=== PATIENT | male | born 1960 | race Caucasian/White ===

== ENCOUNTER 2016-11-25 16:37 | Inpatient (IN) | payer OTHER ==
[2016-11-25] MEDS ORDERED: SODIUM CHLORIDE 0.9% 500 ML IV ONE (17:50)
[2016-11-25] MEDS ORDERED: methylPREDNISolone SOD SUCCI 125 MG/2 ML VIAL IV STA (17:50)
[2016-11-25] MEDS ORDERED: IPRATROPIUM-ALBUTEROL 3 ML NEB INHALATION STA (17:50)
--- NOTE | 2016-11-25 18:46 | ED ---
URI HPI - General Chief Complaint: Upper Respiratory Infection Stated Complaint: congestion Time Seen by Provider: 11/25/16 17:41 Source: patient, RN notes reviewed Mode of arrival: ambulatory Limitations: no limitations - History of Present Illness Initial Comments: 56-year-old male present emergency Department chief complaint cough chest congestion. Patient states she's been sick for last 5 days. Patient states he has a productive cough. Patient states she's had increased shortness breath, wheezing. Patient was seen at urgent care and was given Augmentin, steroids, also and albuterol inhaler. Patient states that symptoms are getting worse. Patient noticed that time. Patient states she's had on and off fevers over the last 5 days. Patient states he has been taken Tylenol for his headaches almost every 6 hours. Patient denies any palpitations sharp chest pain but states he feels some tightness in his chest region. Patient denies any nausea vomiting. Patient has no sick contacts - Related Data Home Medications Medication Instructions Recorded Confirmed Atorvastatin [Lipitor] 80 mg PO HS 08/03/16 11/25/16 Chlorthalidone [Hygroten] 50 mg PO DAILY 08/03/16 11/25/16 Cholecalciferol [Vitamin D3] 5,000 unit PO HS 08/03/16 11/25/16 DULoxetine HCL [Cymbalta] 60 mg PO DAILY 08/03/16 11/25/16 Multivitamin [Men's Multi-Vitamin] 1 tab PO HS 08/03/16 11/25/16 amLODIPine [Norvasc] 10 mg PO DAILY 08/03/16 11/25/16 cloNIDine HCL [Catapres] 0.3 mg PO HS 08/03/16 11/25/16 Albuterol Inhaler [Ventolin Hfa 1 - 2 puff INHALATION RT-Q6H PRN 11/25/16 Inhaler] Amoxic-Pot Clav 875-125Mg 1 tab PO Q12HR 11/25/16 11/25/16 [Augmentin 875-125] L.acidoph,Paracasei, B.lactis 1 cap PO HS 11/25/16 11/25/16 [Probiotic] Promethaz-Cod 6.25-10 mg/5 ml 5 ml PO Q6H PRN 11/25/16 11/25/16 [Phenergan with Codeine] predniSONE See Taper PO DAILY 11/25/16 11/25/16 Allergies Allergy/AdvReac Type Severity Reaction Status Date / Time No Known Allergies Allergy Verified 11/25/16 17:55 Review of Systems ROS Statement: Those systems with pertinent positive or pertinent negative responses have been documented in the HPI. ROS Other: All systems not noted in ROS Statement are negative. Past Medical History Past Medical History: Hyperlipidemia, Hypertension, Musculoskeletal Disorder, Osteoarthritis (OA), Sleep Apnea/CPAP/BIPAP, Thyroid Disorder Additional Past Medical History / Comment(s): uses CPAP, hx. colon polyps, back & disc problems History of Any Multi-Drug Resistant Organisms: None Reported Past Surgical History: Adenoidectomy, Orthopedic Surgery, Tonsillectomy Additional Past Surgical History / Comment(s): left knee arthroscopy, pain procedures, surg. for sleep apnea Past Anesthesia/Blood Transfusion Reactions: Postoperative Nausea & Vomiting ( PONV) Additional Past Anesthesia/Blood Transfusion Reaction / Comment(s): nausea Past Psychological History: No Psychological Hx Reported Smoking Status: Never smoker Past Alcohol Use History: None Reported Past Drug Use History: None Reported - Past Family History Mother Family Medical History: Cancer Additional Family Medical History / Comment(s): colon General Exam Limitations: no limitations General appearance: alert, in no apparent distress Head exam: Present: atraumatic, normocephalic, normal inspection Eye exam: Present: normal appearance, PERRL, EOMI. Absent: scleral icterus, conjunctival injection, periorbital swelling ENT exam: Present: mucous membranes moist, TM's normal bilaterally, normal external ear exam. Absent: normal exam, normal oropharynx (Erythema) Neck exam: Present: normal inspection, full ROM. Absent: tenderness, meningismus, lymphadenopathy Respiratory exam: Present: wheezes, rhonchi. Absent: normal lung sounds bilaterally, respiratory distress, rales, stridor Cardiovascular Exam: Present: regular rate, normal rhythm, normal heart sounds. Absent: systolic murmur, diastolic murmur, rubs, gallop, clicks Back exam: Absent: CVA tenderness (R), CVA tenderness (L) Neurological exam: Present: alert, oriented X3, CN II-XII intact Skin exam: Present: warm, dry, intact, normal color. Absent: rash Course Vital Signs 11/25/16 11/25/16 11/25/16 16:59 19:02 19:12 Temperature 98.5 F Pulse Rate 92 97 108 H Respiratory 18 Rate Blood Pressure 160/99 O2 Sat by Pulse 97 Oximetry Medical Decision Making - Medical Decision Making 56-year-old male presented for cough and congestion. Patient has influenza A but has continued shortness breath, wheezing respirations chest. Patient was admitted at this time for steroids, DuoNeb treatment. - Lab Data Result diagrams: 11/25/16 18:31 11/25/16 18:31 Lab Results 11/25/16 11/25/16 11/25/16 Range/Units 18:31 18:31 18:31 WBC 9.7 (3.8-10.6) k/uL RBC 6.07 H (4.30-5.90) m/uL Hgb 17.8 H (13.0-17.5) gm/dL Hct 53.1 H (39.0-53.0) % MCV 87.4 (80.0-100.0) fL MCH 29.4 (25.0-35.0) pg MCHC 33.6 (31.0-37.0) g/dL RDW 13.2 (11.5-15.5) % Plt Count 368 (150-450) k/uL Neutrophils % 67 % Lymphocytes % 21 % Monocytes % 9 % Eosinophils % 0 % Basophils % 0 % Neutrophils # 6.5 (1.3-7.7) k/uL Lymphocytes # 2.0 (1.0-4.8) k/uL Monocytes # 0.9 (0-1.0) k/uL Eosinophils # 0.0 (0-0.7) k/uL Basophils # 0.0 (0-0.2) k/uL Sodium 140 (137-145) mmol/L Potassium 3.2 L (3.5-5.1) mmol/L Chloride 94 L (98-107) mmol/L Carbon Dioxide 29 (22-30) mmol/L Anion Gap 17 mmol/L BUN 18 (9-20) mg/dL Creatinine 0.93 (0.66-1.25) mg/dL Est GFR (MDRD) Af Amer >60 (>60 ml/min/1.73 sqM) Est GFR (MDRD) Non-Af >60 (>60 ml/min/1.73 sqM) Glucose 140 H (74-99) mg/dL Calcium 10.1 (8.4-10.2) mg/dL Total Bilirubin 0.7 (0.2-1.3) mg/dL AST 56 (17-59) U/L ALT 84 H (21-72) U/L Alkaline Phosphatase 85 (38-126) U/L Troponin I (0.000-0.034) ng/mL Total Protein 8.8 H (6.3-8.2) g/dL Albumin 5.1 H (3.5-5.0) g/dL Influenza Type A RNA Detected H (Not Detectd) Influenza Type B (PCR) Not Detected (Not Detectd) 11/25/16 Range/Units 18:31 WBC (3.8-10.6) k/uL RBC (4.30-5.90) m/uL Hgb (13.0-17.5) gm/dL Hct (39.0-53.0) % MCV (80.0-100.0) fL MCH (25.0-35.0) pg MCHC (31.0-37.0) g/dL RDW (11.5-15.5) % Plt Count (150-450) k/uL Neutrophils % % Lymphocytes % % Monocytes % % Eosinophils % % Basophils % % Neutrophils # (1.3-7.7) k/uL Lymphocytes # (1.0-4.8) k/uL Monocytes # (0-1.0) k/uL Eosinophils # (0-0.7) k/uL Basophils # (0-0.2) k/uL Sodium (137-145) mmol/L Potassium (3.5-5.1) mmol/L Chloride (98-107) mmol/L Carbon Dioxide (22-30) mmol/L Anion Gap mmol/L BUN (9-20) mg/dL Creatinine (0.66-1.25) mg/dL Est GFR (MDRD) Af Amer (>60 ml/min/1.73 sqM) Est GFR (MDRD) Non-Af (>60 ml/min/1.73 sqM) Glucose (74-99) mg/dL Calcium (8.4-10.2) mg/dL Total Bilirubin (0.2-1.3) mg/dL AST (17-59) U/L ALT (21-72) U/L Alkaline Phosphatase (38-126) U/L Troponin I <0.012 (0.000-0.034) ng/mL Total Protein (6.3-8.2) g/dL Albumin (3.5-5.0) g/dL Influenza Type A RNA (Not Detectd) Influenza Type B (PCR) (Not Detectd) Disposition Clinical Impression: Influenza, Dyspnea, Bronchospasm, acute Disposition: ADMITTED IP TO THIS HOSP Condition: Fair
[2016-11-25 18:49] LABS: Basophils % (A) 0 %; CH 30.3; CHCM 34.9; Eosinophils % (A) 0 %; HCT 53.1 % (39.0-53.0); HDW 2.87; HGB 17.8 gm/dL (13.0-17.5); Luc # (Auto) 0.22; Luc % (Auto) 2; Lymphocytes % (A) 21 %; MCH 29.4 pg (25.0-35.0); MCHC 33.6 g/dL (31.0-37.0); MCV 87.4 fL (80.0-100.0); Mean Platelet Volume 6.4; Monocytes # (A) 0.9 k/uL (0-1.0); Monocytes % (A) 9 %; Neutrophils # (A) 6.5 k/uL (1.3-7.7); Neutrophils % (A) 67 %; RBC 6.07 m/uL (4.30-5.90); RDW 13.2 % (11.5-15.5); WBC 9.7 k/uL (3.8-10.6); WBC (Perox) 9.79
[2016-11-25 18:58] LABS: ALT 84 U/L (21-72); AST 56 U/L (17-59); Alkaline Phosphatase 85 U/L (38-126); Anion Gap 17 mmol/L; Blood Urea Nitrogen 18 mg/dL (9-20); Calcium 10.1 mg/dL (8.4-10.2); Carbon Dioxide 29 mmol/L (22-30); Chloride 94 mmol/L (98-107); Glucose 140 mg/dL (74-99); Non-African American GFR(MDRD) >60 (>60 ml/min/1.73 sqM); Potassium 3.2 mmol/L (3.5-5.1); Sodium 140 mmol/L (137-145); Total Bilirubin 0.7 mg/dL (0.2-1.3); Total Protein 8.8 g/dL (6.3-8.2)
--- NOTE | 2016-11-25 19:42 | XR ---
EXAMINATION TYPE: XR chest 2V DATE OF EXAM: 11/25/2016 7:36 PM COMPARISON: NONE HISTORY: Cough and fever TECHNIQUE: Frontal and lateral views of the chest are obtained. FINDINGS: Heart and mediastinum are normal. Lungs are clear. Diaphragm is normal. Bony thorax and so ft tissues appear normal. IMPRESSION: Normal chest.
[2016-11-25] MEDS ORDERED: ONDANSETRON 4 MG/2 ML VIAL IVP PRN (19:56)
[2016-11-25] MEDS ORDERED: NALOXONE 0.4 MG/ML 1 ML VIAL IV PRN (19:56)
[2016-11-25] MEDS ORDERED: PROMETHAZ-COD 6.25-10 MG/5 ML 5 ML CUP PO PRN (19:57)
[2016-11-25] MEDS ORDERED: OSELTAMIVIR 75 MG CAP PO STA (20:32)
[2016-11-25] MEDS: IPRATROPIUM-ALBUTEROL 3 ML NEB INHALATION SCH (21:04)
[2016-11-26] MEDS: IPRATROPIUM-ALBUTEROL 3 ML NEB INHALATION SCH ×7 (00:59→23:38)
[2016-11-26] MEDS: methylPREDNISolone SOD SUCCI 125 MG/2 ML VIAL IV SCH ×4 (01:11→17:27)
[2016-11-26] MEDS: cloNIDine HCL 0.1 MG TAB PO SCH ×2 (01:12→20:34)
[2016-11-26] MEDS: ATORVASTATIN 80 MG TAB PO SCH ×2 (01:12→20:34)
[2016-11-26] MEDS: MULTIVITAMINS, THERA 1 EACH TAB PO SCH ×2 (01:12→20:35)
[2016-11-26] MEDS: LACTOBACILLUS ACIDOPH & BULGAR 1 EACH PACKET PO SCH ×3 (01:12→20:35)
[2016-11-26 07:54] LABS: Glucose,Whole Blood 201 mg/dL (75-99)
[2016-11-26] MEDS: INSULIN LISPRO (humaLOG) 300 UNIT/3 ML VIAL SQ SCH ×4 (07:54→20:34)
[2016-11-26] MEDS: CHLORTHALIDONE 25 MG TAB PO SCH (07:57)
[2016-11-26] MEDS: OSELTAMIVIR 75 MG CAP PO SCH ×2 (07:58→20:34)
[2016-11-26] MEDS: ACETAMINOPHEN TAB 325 MG TAB PO PRN ×2 (08:25→20:40)
[2016-11-26] MEDS: DULoxetine HCL 60 MG CAPSULE.DR PO SCH (08:25)
[2016-11-26] MEDS: amLODIPine 10 MG TAB PO SCH (08:25)
[2016-11-26] MEDS: IBUPROFEN 400 MG TAB PO PRN ×2 (09:54→17:31)
[2016-11-26 11:44] LABS: Glucose,Whole Blood 194 mg/dL (75-99)
[2016-11-26 13:04] LABS: Anion Gap 19 mmol/L; Blood Urea Nitrogen 19 mg/dL (9-20); Calcium 10.1 mg/dL (8.4-10.2); Carbon Dioxide 24 mmol/L (22-30); Chloride 97 mmol/L (98-107); Glucose 192 mg/dL (74-99); Non-African American GFR(MDRD) >60 (>60 ml/min/1.73 sqM); Sodium 140 mmol/L (137-145)
[2016-11-26 13:07] LABS: Potassium 2.9 mmol/L (3.5-5.1)
[2016-11-26] MEDS ORDERED: Potassium Replacement Protocol 1 EACH MISC MISCELLANE PRN (13:10)
[2016-11-26] MEDS ORDERED: VANCOMYCIN 1,750 MG in SODIUM CHLORIDE 0.9% 250 ML IVPB STA (13:33)
[2016-11-26] MEDS ORDERED: IV VANCOMYCIN PER PHARMACY 1 EACH MISC MISCELLANE PRN (13:34)
[2016-11-26] MEDS: POTASSIUM CHLORIDE ER 20 MEQ TAB.ER PO SCH ×5 (13:51→22:23)
[2016-11-26] MEDS: 0.9% NACL WITH KCL 40 MEQ/L 1,000 ML IV SCH (14:49)
[2016-11-26] MEDS ORDERED: ALPRAZolam 0.25 MG TAB PO PRN (14:58)
[2016-11-26] MEDS ORDERED: HYDROmorphone 1 MG/ML 1 ML SYRINGE IVP PRN (14:58)
[2016-11-26] MEDS ORDERED: LEVOFLOXACIN 500MG-D5W PMX 500 MG in DEXTROSE/WATER 1 100ML.BAG IVPB SCH (16:00)
[2016-11-26 16:09] LABS: Basophils # (A) 0.1 k/uL (0-0.2); Basophils % (A) 1 %; CH 30.6; CHCM 35.3; Eosinophils # (A) 0.1 k/uL (0-0.7); Eosinophils % (A) 0 %; HCT 49.2 % (39.0-53.0); HDW 2.84; HGB 16.8 gm/dL (13.0-17.5); Luc # (Auto) 0.17; Luc % (Auto) 1; Lymphocytes # (A) 1.8 k/uL (1.0-4.8); Lymphocytes % (A) 14 %; MCH 29.8 pg (25.0-35.0); MCHC 34.2 g/dL (31.0-37.0); MCV 87.2 fL (80.0-100.0); Mean Platelet Volume 7.1; Monocytes # (A) 0.5 k/uL (0-1.0); Monocytes % (A) 4 %; Neutrophils # (A) 10.2 k/uL (1.3-7.7); Neutrophils % (A) 80 %; RBC 5.65 m/uL (4.30-5.90); RDW 13.1 % (11.5-15.5); WBC 12.8 k/uL (3.8-10.6)
[2016-11-26] MEDS: HEPARIN SODIUM,PORCINE 5,000 UNIT/ML 1 ML VIAL SQ SCH (16:12)
[2016-11-26 17:16] LABS: Glucose,Whole Blood 179 mg/dL (75-99)
--- NOTE | 2016-11-26 18:35 | HP ---
DATE OF ADMISSION: 11/25/2016 CHIEF COMPLAINTS: Cough sputum, weakness as well as influenza. HISTORY OF PRESENT ILLNESS: This 56-year-old gentleman with a past medical history of multiple medical problems, including hypertension, hyperlipidemia, history of DJD, history of sleep apnea, history of CPAP, history of colon polyp, being followed by Dr. Tovar in the outpatient setting, was not feeling well over the last 2 to 3 days. The patient had increasing shortness of breath and cough. The patient also felt tired and weak and had fever. Patient came to [facility] and was admitted for further evaluation and treatment. Chest x-ray reported no evidence of pneumonia, but influenza A was positive. Patient also had significant electrolyte abnormalities, including hypokalemia. There is no history of any rigor or chills, no history of headache, loss of consciousness at this time. As mentioned earlier, patient is feeling extremely tired and weak at this time. PAST MEDICAL HISTORY: 1. History of hypertension. 2. Hyperlipidemia. 3. History of DJD. 4. History of sleep apnea. 5. Hypothyroidism. 6. CPAP. 7. Adenoidectomy. 8. Orthopedic surgery. HOME MEDICATIONS: 1. Prednisone daily. 2. Catapres 0.2 at bedtime. 3. Norvasc 10 mg daily. 4. Phenergan 5 mL p.o. q.6 p.r.n. 5. Multivitamins 1 p.o. daily. 6. Lactobacillus acidophilus 1 capsule at bedtime. 7. Cymbalta 60 mg daily. 8. Vitamin D3 5000 subcutaneously at bedtime. 9. Hygroton 50 mg p.o. daily. 10. Lipitor 80 mg at bedtime. 11. Augmentin 875 mg 1 tablet p.o. b.i.d. 12. Ventolin HFA 1 to 2 inhalations q.6 p.r.n. ALLERGIES: NONE. FAMILY HISTORY: History of cancer in the family. SOCIAL HISTORY: No history of smoking. Occasional alcohol intake. REVIEW OF SYSTEMS: ENT: No diminished hearing. No diminished vision. CARDIOVASCULAR: No angina or palpitations. RESPIRATORY: As mentioned earlier. GI: No nausea. : No dysuria. NERVOUS SYSTEM: No numbness. Weakness present. ALLERGY/IMMUNOLOGY: No asthma, hayfever MUSCULOSKELETAL: As mentioned earlier. HEMATOLOGY/ONCOLOGY: No history of anemia. ENDOCRINE: No history of diabetes, hypothyroidism. CONSTITUTIONAL: As mentioned earlier. DERMATOLOGY: Negative. RHEUMATOLOGY: Negative. PSYCHIATRY: As mentioned earlier. PHYSICAL EXAMINATION: Patient is alert and oriented x3. Pulse is 77, blood pressure 147/99, respiration 20, temperature 96.4, pulse ox 99% on room air. HEENT: Conjunctivae normal. Oral mucosa moist. NECK: No jugular venous distention. No carotid bruit. No lymph node enlargement. CARDIOVASCULAR SYSTEM: S1, S2 muffled. No S3. No S4. RESPIRATORY SYSTEM: Breath sounds diminished at the bases. Bilateral scattered rhonchi and expiratory wheezing and crackles. ABDOMEN: Soft, obese, nontender. No mass palpable. LEGS: No edema. No swelling. NERVOUS SYSTEM: Higher functions as mentioned earlier. Moves all 4 limbs. No focal motor or sensory deficit. LYMPHATICS: No lymph node palpable in neck, axillae or groin. SKIN: No ulcer, rash, bleeding. LABS: WBC 9.7, hemoglobin 17.8, hematocrit 53.1. Potassium 3.2; 2.9 on repetition. Glucose 201, 194. Influenza A is positive. ASSESSMENT: 1. Acute influenza A with severe systemic reaction. 2. Severe hypokalemia. 3. Increased random blood sugar. 4. Increased hemoglobin with possible dehydration, present on admission. 5. Obesity with body mass index of 34.3. 6. Hypertension. 7. Hyperlipidemia. 8. History of degenerative joint disease. 9. History of sleep apnea. 10. History of hypothyroidism. 11. History of CPAP. 12. History of colonic polyps. 13. History of degenerative joint disease. 14. FULL CODE. RECOMMENDATIONS AND DISCUSSION: In this 56-year-old gentleman who presented with multiple complex medical issues, we will monitor the patient closely, continue the current medications, continue symptomatic treatment. I would recommend initiating Tamiflu. Would also recommend broad-spectrum IV antibiotics. Also consult Infectious Disease. Steroids have been initiated. Will continue to monitor. Accu-Cheks before meals and at bedtime. Guarded prognosis because of multiple complex medical issues. Further recommendations to follow. A copy of this dictation is being forwarded to Dr. Tovar, who is the primary physician.
--- NOTE | 2016-11-26 20:09 | CONS ---
DATE OF CONSULTATION: 11/26/2016 REASON FOR CONSULTATION: 1. Acute influenza A. 2. Positive blood culture. HISTORY OF PRESENT ILLNESS: The patient is a 56-year-old male presenting to the ER with chief complaints of not feeling well cough with cough and congestion that have been going on for about a week prior to presentation to hospital. His symptoms started last weekend; he had some sore throat and he had dry, hacking cough. He also had a low-grade fever. Patient was evaluated at the Urgent Care, where the patient was given steroids and Augmentin. However, the patient's symptoms did not improve. He continued to have a dry, hacking cough. At times he did bring up some greenish sputum but no hemoptysis. He has some pleuritic chest pain, especially when he takes a deep breath or coughs. The patient did have a low-grade fever. With these symptoms, he was evaluated by the ER physician. The patient did have a chest x-ray last evening that was reported to be normal chest. The patient did have a normal white count, though his influenza A RNA came back positive. The patient did have blood cultures obtained and he was treated with Tamiflu. Now the blood culture is coming back positive with Gram-positive cocci in clusters. Hence I was asked to see the patient for further recommendations regarding antibiotic therapy. REVIEW OF SYSTEMS: CONSTITUTIONAL: Positive for weakness. EYES: No complaint. ENT: As per HPI. RESPIRATORY: As per HPI. CARDIOVASCULAR: No complaint. GENITOURINARY: No complaint. GASTROINTESTINAL: No complaint. MUSCULOSKELETAL: No complaint. INTEGUMENTARY: No complaint. PSYCHOLOGIC: No complaint. ENDOCRINE: No complaint. NEUROLOGIC: No complaint. Past medical history is significant for: 1. Hypertension. 2. Hyperlipidemia. 3. Osteoarthritis. 4. Sleep apnea. 5. Hypothyroidism. 6. Chronic back pain. PAST SURGICAL HISTORY: 1. Tonsillectomy. 2. Adenoidectomy. 3. Left knee arthroscopy. SOCIAL HISTORY: No history of smoking, drinking or drug use. FAMILY HISTORY: Father with history of colon cancer. ALLERGIES: NO KNOWN DRUG ALLERGIES. Current medications include: 1. Dilaudid. 2. Motrin. 3. Humalog. 4. Lactobacillus. 5. Levofloxacin. 6. Solu-Medrol. 7. Marcaine. 8. Tamiflu. 9. Protonix. 10. Restoril. 11. Vancomycin. On examination, blood pressure is 141/86 with a pulse of 84, temperature of 97.2. He is 93% on room air. General description is a middle-aged male lying in bed in no distress. No tachypnea or accessory muscle of respiration use. HEENT examination showed no pallor or scleral icterus. Oral mucosa is moist. Slight pharyngeal erythema. NECK: Trachea is central. No thyromegaly. LUNGS: Unlabored breathing. Clear to auscultation anteriorly. No wheeze or crackle. HEART: S1, S2. Regular rate and rhythm. ABDOMEN: Soft. No tenderness. EXTREMITIES: No edema of feet. SKIN EXAMINATION: No rash or mass palpable. NEUROLOGICAL: Patient is awake, alert, oriented x3. Mood and affect normal. LABS: Hemoglobin is 13.8, white count 9.7. BUN of 19, creatinine 1.0. Potassium is 2.9, is being replaced. Liver enzymes ALT is slightly elevated at 84. Influenza A serology was positive. Chest x-ray reported to be negative. DIAGNOSTIC IMPRESSION AND PLAN: 1. Patient with positive blood culture with Gram-positive cocci in clusters. The patient presented to hospital with not feeling well; did have dry hacking cough and a sore throat. Symptoms had been going on for about a week, failing outpatient steroids and oral antibiotic therapy in a patient whose influenza A serology is coming back positive, likely influenza A with differential for positive blood cultures possible contamination, as the chest x-ray is reported to be negative for any pneumonia and his lungs were clear to auscultation, and no other clinical focus of infection. 2. Patient with acute influenza A being responsible for most of his symptomatology, failing outpatient antibiotic as well as steroid therapy. PLAN: 1. Will obtain blood culture x1 before starting on the vancomycin to make sure we are not dealing with contamination. 2. If the organism is finalized as a coagulase-negative staph or Staphylococcus epi, will be disregarded and no further workup is needed. 3. If the organism is finalized as Staphylococcus aureus, we will need to do further workup and repeat a chest x-ray to make sure there is no evidence of any post-influenza pneumonia that needs to be treated aggressively. 4. Patient will be continued on vancomycin while workup is completed in addition to the Tamiflu. 5. Will follow up on his clinical condition and cultures to further adjust the medication if needed. Thank you for this consultation. Will follow this patient along with you. DIRK
[2016-11-26 20:16] LABS: Appearance,Urine Clear (Clear); Bilirubin,Urine Negative (Negative); Glucose,Urine (UA) Negative (Negative); Ketones,Urine Negative (Negative); Leukocyte Esterase,Urine Negative (Negative); Nitrite,Urine Negative (Negative); PH, Urine 6.5 (5.0-8.0); Protein,Urine Negative (Negative); Specific Gravity,Urine 1.011 (1.001-1.035); UA Billing (MACRO vs. MICRO) CHEM; Urobilinogen,Urine <2.0 mg/dL (<2.0)
[2016-11-26] MEDS: TEMAZEPAM 15 MG CAP PO PRN (20:40)
[2016-11-26 20:57] LABS: Glucose,Whole Blood 187 mg/dL (75-99)
[2016-11-27] MEDS: POTASSIUM CHLORIDE ER 20 MEQ TAB.ER PO SCH
[2016-11-27] MEDS: IPRATROPIUM-ALBUTEROL 3 ML NEB INHALATION SCH ×6 (05:54→23:02)
[2016-11-27] MEDS: methylPREDNISolone SOD SUCCI 125 MG/2 ML VIAL IV SCH ×3 (06:32→12:45)
[2016-11-27] MEDS: HYDROcodone/APAP 5-325MG 1 EACH TAB PO PRN ×3 (06:33→20:06)
[2016-11-27 07:54] LABS: Glucose,Whole Blood 156 mg/dL (75-99)
[2016-11-27 08:02] LABS: Basophils % (A) 0 %; CH 30.1; CHCM 34.4; Eosinophils % (A) 0 %; HCT 45.4 % (39.0-53.0); HDW 2.83; HGB 14.8 gm/dL (13.0-17.5); Luc # (Auto) 0.25; Luc % (Auto) 1; Lymphocytes # (A) 2.5 k/uL (1.0-4.8); Lymphocytes % (A) 15 %; MCH 28.8 pg (25.0-35.0); MCHC 32.6 g/dL (31.0-37.0); MCV 88.2 fL (80.0-100.0); Mean Platelet Volume 6.6; Monocytes # (A) 0.8 k/uL (0-1.0); Monocytes % (A) 4 %; Neutrophils # (A) 13.8 k/uL (1.3-7.7); Neutrophils % (A) 80 %; RBC 5.15 m/uL (4.30-5.90); RDW 13.5 % (11.5-15.5); WBC 17.3 k/uL (3.8-10.6); WBC (Perox) 17.92
[2016-11-27] MEDS: PANTOPRAZOLE 40 MG TABLET PO SCH (08:12)
[2016-11-27] MEDS: amLODIPine 10 MG TAB PO SCH (08:12)
[2016-11-27] MEDS: HEPARIN SODIUM,PORCINE 5,000 UNIT/ML 1 ML VIAL SQ SCH ×2 (08:13→20:08)
[2016-11-27] MEDS: DULoxetine HCL 60 MG CAPSULE.DR PO SCH (08:13)
[2016-11-27] MEDS: OSELTAMIVIR 75 MG CAP PO SCH ×2 (08:13→20:09)
[2016-11-27] MEDS: CHLORTHALIDONE 25 MG TAB PO SCH (08:13)
[2016-11-27] MEDS: INSULIN LISPRO (humaLOG) 300 UNIT/3 ML VIAL SQ SCH ×4 (08:13→22:14)
[2016-11-27 08:14] LABS: Anion Gap 14 mmol/L; Blood Urea Nitrogen 22 mg/dL (9-20); Calcium 9.4 mg/dL (8.4-10.2); Carbon Dioxide 28 mmol/L (22-30); Chloride 99 mmol/L (98-107); Glucose 151 mg/dL (74-99); Non-African American GFR(MDRD) >60 (>60 ml/min/1.73 sqM); Potassium 3.6 mmol/L (3.5-5.1); Sodium 141 mmol/L (137-145)
[2016-11-27] MEDS: 0.9% NACL WITH KCL 40 MEQ/L 1,000 ML IV SCH ×3 (08:21→23:15)
--- NOTE | 2016-11-27 09:18 | XR ---
EXAMINATION TYPE: XR chest 1V portable DATE OF EXAM: 11/27/2016 9:05 AM COMPARISON: 11/25/2016 HISTORY: Cough and pain TECHNIQUE: Single frontal view of the chest is obtained. FINDINGS: There is no focal air space opacity, pleural effusion, or pneumothorax seen. The cardiac silhouette size is within normal limits. The osseous structures are intact. IMPRESSION: No acute process.
[2016-11-27] MEDS ORDERED: POTASSIUM CHLORIDE ER 20 MEQ TAB.ER PO SCH (10:00)
[2016-11-27 12:44] LABS: Glucose,Whole Blood 163 mg/dL (75-99)
[2016-11-27] MEDS: VANCOMYCIN 1,750 MG in SODIUM CHLORIDE 0.9% 250 ML IVPB SCH ×4 (12:45→23:15)
--- NOTE | 2016-11-27 16:45 | PN ---
DATE OF SERVICE: 11/27/2016 This 56-year-old gentleman who was admitted with acute influenza A with possible sepsis, present on admission is being closely monitored. The initial cultures are showing coagulase-negative Staph. Dr. Shaikh is following the patient closely. The patient is on broad-spectrum IV antibiotics. The patient complains of shortness of breath and incessant cough also. No chest pain or palpitations. Past medical history reviewed. REVIEW OF SYSTEMS: CARDIOVASCULAR: No angina or palpitations. RESPIRATORY: As mentioned earlier. GASTROINTESTINAL: As mentioned earlier. GENITOURINARY: No dysuria or hematuria. CENTRAL NERVOUS SYSTEM: No numbness. Generalized weakness present. Current medications are reviewed and include: 1. Tylenol 650 q.6 p.r.n. 2. Drummonds 5 mg. 3. DuoNeb q.i.d. and p.r.n. 4. Xanax 0.25 t.i.d. 5. Norvasc 10 mg daily. 6. Lipitor 80 mg q.h.s. 9. Cymbalta 60 milligrams p.o. daily. 10. Heparin 5000 subcu b.i.d. 11. Dilaudid 0.5 mg q.6 p.r.n. 12. Motrin 600 mg q.6h p.r.n. 13. Humalog. 14. Lactinex. 15. Multivitamins. 16. Tamiflu 70 milligrams p.o. b.i.d. 17. Temazepam. 18. Vancomycin. PHYSICAL EXAMINATION: The patient is alert and oriented times three. Pulse 76, blood pressure is 141/82, respirations 16, temperature 97.4 and pulse ox 97% on room air. HEENT: Conjunctivae normal. Oral mucosa moist. NECK: No jugular venous distention. No carotid bruit. No lymph node enlargement. CARDIOVASCULAR: S1, S2 muffled. No S3, no S4. RESPIRATORY: Breath sounds diminished in the bases. A few scattered rhonchi and crackles. ABDOMEN: Soft, nontender. LEGS: No edema. No swelling. CENTRAL NERVOUS SYSTEM: Higher functions as mentioned earlier. Moves all four limbs. No focal deficits. LYMPHATICS: No lymph nodes palpable in the neck, axillae or groin. SKIN: No ulcer, rash or bleeding. LABS: WBC 70.3 and glucose noted. EKG noted. ASSESSMENT: 1. Acute influenza A with possible sepsis, present on admission. 2. Acute purulent tracheobronchitis. 3. Severe hypokalemia. 4. Increased elevated QT interval. 5. Increased random blood sugar. 6. Increased hemoglobin with possible dehydration, present on admission. 7. Obesity body mass index of 34.6. 8. Hypertension. 9. Hyperlipidemia. 10. History of degenerative joint disease. 11. History of sleep apnea. 12. Hypothyroidism. 13. History of CPAP. 14. History of colonic polyps. 15. History of degenerative joint disease. 16. FULL CODE. RECOMMENDATIONS AND DISCUSSION: Recommend to continue current medications. Current symptomatic treatment. Otherwise, at this time, I would recommend a cardiology consultation also. Continue with antibiotics. The patient complaining of significant weakness still. The initial troponins were negative. Possibility of myocarditis also being considered. The prognosis is guarded because of multiple complex medical issues. Further recommendations to follow. See orders for details. MTDD
[2016-11-27 17:33] LABS: Glucose,Whole Blood 173 mg/dL (75-99)
[2016-11-27] MEDS: ATORVASTATIN 80 MG TAB PO SCH (20:07)
[2016-11-27] MEDS: cloNIDine HCL 0.1 MG TAB PO SCH (20:07)
[2016-11-27] MEDS: LACTOBACILLUS ACIDOPH & BULGAR 1 EACH PACKET PO SCH (20:08)
[2016-11-27] MEDS: MULTIVITAMINS, THERA 1 EACH TAB PO SCH (20:09)
[2016-11-27 21:22] LABS: Glucose,Whole Blood 188 mg/dL (75-99)
[2016-11-27] MEDS: TEMAZEPAM 15 MG CAP PO PRN (22:18)
[2016-11-28] MEDS: IPRATROPIUM-ALBUTEROL 3 ML NEB INHALATION SCH ×5 (03:15→19:46)
[2016-11-28 07:34] LABS: Glucose,Whole Blood 113 mg/dL (75-99)
[2016-11-28] MEDS: INSULIN LISPRO (humaLOG) 300 UNIT/3 ML VIAL SQ SCH ×4 (07:37→21:27)
[2016-11-28] MEDS: CHLORTHALIDONE 25 MG TAB PO SCH (08:20)
[2016-11-28] MEDS: OSELTAMIVIR 75 MG CAP PO SCH ×2 (08:20→21:27)
[2016-11-28] MEDS: DULoxetine HCL 60 MG CAPSULE.DR PO SCH (08:20)
[2016-11-28] MEDS: PANTOPRAZOLE 40 MG TABLET PO SCH (08:20)
[2016-11-28] MEDS: HEPARIN SODIUM,PORCINE 5,000 UNIT/ML 1 ML VIAL SQ SCH ×2 (08:20→21:27)
[2016-11-28] MEDS: amLODIPine 10 MG TAB PO SCH (08:20)
--- NOTE | 2016-11-28 10:18 | P.CRDCN ---
History of Present Illness Reason for Consult (text): abnormal EKG. History of present illness: this is a 56-year-old gentleman who is seen for cardiac evaluation. This patient has a history of for hypertension and hyperlipidemia and degenerative joint disease as well as sleep apnea. Patient is seen for because of abnormal EKG. Patient has not been feeling well for last 3-4 days he has been having fever cough and shortness of breath. She indeed had a fever prior to coming to the hospital nasal swab is positive for influenza A. Since initial potassium was 3.2. Patient to did not had any chest pain. There is no prior history of myocardial infarction. His and is moderately active physically without any history of exertional angina. There is no history of diabetes. Past Medical History Past Medical History: Hyperlipidemia, Hypertension, Musculoskeletal Disorder, Osteoarthritis (OA), Sleep Apnea/CPAP/BIPAP, Thyroid Disorder Additional Past Medical History / Comment(s): uses CPAP, hx. colon polyps, back & disc problems History of Any Multi-Drug Resistant Organisms: None Reported Past Surgical History: Adenoidectomy, Orthopedic Surgery, Tonsillectomy Additional Past Surgical History / Comment(s): left knee arthroscopy, pain procedures, surg. for sleep apnea Past Anesthesia/Blood Transfusion Reactions: Postoperative Nausea & Vomiting ( PONV) Additional Past Anesthesia/Blood Transfusion Reaction / Comment(s): nausea Past Psychological History: No Psychological Hx Reported Smoking Status: Never smoker Past Alcohol Use History: None Reported Past Drug Use History: None Reported - Past Family History Mother Family Medical History: Cancer Additional Family Medical History / Comment(s): colon Medications and Allergies Home Medications Medication Instructions Recorded Confirmed Type Atorvastatin [Lipitor] 80 mg PO HS 08/03/16 11/25/16 History Chlorthalidone [Hygroten] 50 mg PO DAILY 08/03/16 11/25/16 History Cholecalciferol [Vitamin D3] 5,000 unit PO HS 08/03/16 11/25/16 History DULoxetine HCL [Cymbalta] 60 mg PO DAILY 08/03/16 11/25/16 History Multivitamin [Men's Multi-Vitamin] 1 tab PO HS 08/03/16 11/25/16 History amLODIPine [Norvasc] 10 mg PO DAILY 08/03/16 11/25/16 History cloNIDine HCL [Catapres] 0.3 mg PO HS 08/03/16 11/25/16 History Albuterol Inhaler [Ventolin Hfa 1 - 2 puff INHALATION RT-Q6H PRN 11/25/16 History Inhaler] Amoxic-Pot Clav 875-125Mg 1 tab PO Q12HR 11/25/16 11/25/16 History [Augmentin 875-125] L.acidoph,Paracasei, B.lactis 1 cap PO HS 11/25/16 11/25/16 History [Probiotic] Promethaz-Cod 6.25-10 mg/5 ml 5 ml PO Q6H PRN 11/25/16 11/25/16 History [Phenergan with Codeine] predniSONE See Taper PO DAILY 11/25/16 11/25/16 History Allergies Allergy/AdvReac Type Severity Reaction Status Date / Time No Known Allergies Allergy Verified 11/25/16 17:55 Physical Exam Vitals: Vital Signs Temp Pulse Pulse Pulse Resp BP Pulse Ox 11/28/16 07:31 72 11/28/16 07:19 72 11/28/16 07:00 97.9 F 67 20 135/79 95 11/27/16 23:30 96.5 F L 76 20 147/86 93 L 11/27/16 20:13 86 145/86 11/27/16 19:56 68 11/27/16 19:43 68 11/27/16 16:06 72 11/27/16 15:51 68 11/27/16 15:44 22 11/27/16 15:00 97.0 F L 86 22 140/95 93 L Intake and Output 11/27/16 11/28/16 11/28/16 21:59 06:59 14:59 Intake Total Balance Intake: Oral Other: Voiding Method # Voids patient is comfortable and in non-any acute distress. Patient's vital signs are reviewed. HEENT. Negative Neck. Supple. No increase in jugular venous pressure. No carotid bruit noted. Chest. Symmetrical. Heart. First and second heart sounds are normal. No significant murmurs are noted. Lungs. Bilateral rhonchi and wheezing noted. Abdomen is soft. Extremities. Pedal pulses are 2+. No pedal edema is noted. EKG shows normal sinus rhythm with nonspecific ST-T changes. Patient recently had a stress test 3-4 months ago which was normal. Results 11/27/16 07:29 11/27/16 07:29 Current Medications Generic Name Dose Route Start Last Admin Trade Name Freq PRN Reason Stop Dose Admin Acetaminophen 650 mg 11/25/16 19:56 11/26/16 20:40 Tylenol Tab PO 650 mg Q6HR PRN Administration Mild Pain or Fever > 100.5 Hydrocodone Bitart/Acetaminophen 1 each 11/26/16 14:58 11/27/16 20:06 Tryon 5-325 PO 1 each Q6HR PRN Administration Pain Albuterol/Ipratropium 3 ml 11/25/16 20:00 11/28/16 07:19 Duoneb 0.5 Mg-3 Mg/3 Ml Soln INHALATION 3 ml RT-Q4H SCOTT Administration Alprazolam 0.25 mg 11/26/16 14:58 Xanax PO TID PRN Anxiety Amlodipine Besylate 10 mg 11/26/16 09:00 11/28/16 08:20 Norvasc PO 10 mg DAILY SCOTT Administration Atorvastatin Calcium 80 mg 11/25/16 21:00 11/27/16 20:07 Lipitor PO 80 mg HS SCOTT Administration Chlorthalidone 50 mg 11/26/16 09:00 11/28/16 08:20 Hygroton PO 50 mg DAILY SCOTT Administration Clonidine 0.3 mg 11/25/16 21:00 11/27/16 20:07 Catapres PO 0.3 mg HS SCOTT Administration Duloxetine HCl 60 mg 11/26/16 09:00 11/28/16 08:20 Cymbalta PO 60 mg DAILY SCOTT Administration Heparin Sodium (Porcine) 5,000 unit 11/26/16 16:00 11/28/16 08:20 Heparin SQ 5,000 unit Q12HR SCOTT Administration Hydromorphone HCl 0.5 mg 11/26/16 14:58 Dilaudid IVP Q6HR PRN Severe Pain Potassium Chloride/Sodium Chloride 1,000 mls @ 75 mls/hr 11/26/16 14:00 11/27 23:15 Ns-Kcl 40 Meq/L Iv Solution IV 75 mls/hr .[id number] SCOTT Administration Vancomycin HCl 1,750 mg/ 250 mls @ 125 mls/hr 11/27/16 00:00 11/27/16 23:15 Sodium Chloride IVPB 125 mls/hr Q12HR@0000,1200 SCOTT Administration Ceftriaxone Sodium 1,000 mg/ 50 mls @ 100 mls/hr 11/27/16 16:00 11/28/16 08: 19 Sodium Chloride IVPB 100 mls/hr Q24HR SCOTT Administration Ibuprofen 600 mg 11/25/16 19:56 11/26/16 17:31 Motrin PO 600 mg Q6HR PRN Administration Mild Pain or Fever > 100.5 Insulin Human Lispro 0 unit 11/26/16 07:30 11/28/16 07:37 Humalog SQ Not Given ACHS [facility] Protocol Lactobacillus Acidoph/Bulgaricus 1 each 11/25/16 21:00 11/27/16 20:08 Lactinex PO Not Given HS [facility] Miscellaneous Information 1 each 11/26/16 13:10 Potassium Per Protocol MISCELLANE DAILY PRN Per Protocol Protocol Miscellaneous Information 0 each 11/28/16 11:00 Vancomycin Trough Due MISCELLANE 11/28/16 11:01 ONCE ONE Multivitamins 1 each 11/25/16 21:00 11/27/16 20:09 Theragran PO 1 each HS SCOTT Administration Naloxone HCl 0.2 mg 11/25/16 19:56 Narcan IV Q2M PRN Opioid Reversal Oseltamivir Phosphate 75 mg 11/26/16 09:00 11/28/16 08:20 Tamiflu PO 11/30/16 09:01 75 mg Q12HR SCOTT Administration Pantoprazole Sodium 40 mg 11/27/16 07:30 11/28/16 08:20 Protonix PO 40 mg [id number] SCOTT Administration Promethazine HCl/Codeine 5 ml 11/25/16 19:57 11/26/16 01:17 Phenergan With Codeine PO 5 ml Q6H PRN Administration Cough Temazepam 15 mg 11/26/16 21:00 11/27/16 22:18 Restoril PO 15 mg HS PRN Administration Insomnia Intake and Output 11/27/16 11/28/16 11/28/16 21:59 06:59 14:59 Intake Total Balance Intake: Oral Other: Voiding Method # Voids Assessment and Plan Plan: this patient is primarily admitted with the flu and acute bronchitis. Patient' s EKG shows nonspecific ST-T changes could be secondary to hypokalemia. Patient does not have any symptoms suggestive of acute coronary syndrome. Patient recently had a stress test 3-4 months ago which was normal. We will do echo and Doppler study. Continue current medical treatment.
[2016-11-28] MEDS ORDERED: VANCOMYCIN TROUGH DUE 1 EACH MISC MISCELLANE ONE (11:00)
[2016-11-28 11:06] LABS: Basophils # (A) 0.1 k/uL (0-0.2); Basophils % (A) 1 %; CH 30.2; CHCM 34.8; Eosinophils % (A) 0 %; HCT 44.4 % (39.0-53.0); HDW 2.95; HGB 15.4 gm/dL (13.0-17.5); Luc # (Auto) 0.36; Luc % (Auto) 2; Lymphocytes # (A) 4.4 k/uL (1.0-4.8); Lymphocytes % (A) 22 %; MCH 30.2 pg (25.0-35.0); MCHC 34.6 g/dL (31.0-37.0); MCV 87.3 fL (80.0-100.0); Mean Platelet Volume 7.1; Monocytes # (A) 1.2 k/uL (0-1.0); Monocytes % (A) 6 %; Neutrophils # (A) 13.7 k/uL (1.3-7.7); Neutrophils % (A) 69 %; RBC 5.09 m/uL (4.30-5.90); RDW 13.4 % (11.5-15.5); WBC 19.9 k/uL (3.8-10.6); WBC (Perox) 20.39
[2016-11-28] MEDS: VANCOMYCIN 1,750 MG in SODIUM CHLORIDE 0.9% 250 ML IVPB SCH (11:07)
[2016-11-28 11:20] LABS: Anion Gap 8 mmol/L; Blood Urea Nitrogen 16 mg/dL (9-20); Calcium 9.3 mg/dL (8.4-10.2); Carbon Dioxide 32 mmol/L (22-30); Chloride 97 mmol/L (98-107); Glucose 117 mg/dL (74-99); Non-African American GFR(MDRD) >60 (>60 ml/min/1.73 sqM); Sodium 137 mmol/L (137-145)
[2016-11-28 11:34] LABS: Potassium 2.9 mmol/L (3.5-5.1)
[2016-11-28] MEDS ORDERED: Potassium Replacement Protocol 1 EACH MISC MISCELLANE PRN (11:39)
[2016-11-28 11:59] LABS: Glucose,Whole Blood 82 mg/dL (75-99)
[2016-11-28] MEDS: POTASSIUM CHLORIDE ER 20 MEQ TAB.ER PO SCH ×5 (12:35→23:39)
[2016-11-28] MEDS: HYDROcodone/APAP 5-325MG 1 EACH TAB PO PRN ×2 (13:01→21:26)
[2016-11-28] MEDS: POTASSIUM CHLORIDE 20 MEQ in WATER FOR INJECTION 1 100ML.BAG IVPB SCH ×2 (14:22→16:17)
[2016-11-28] MEDS: ACETAMINOPHEN TAB 325 MG TAB PO PRN ×2 (14:40→23:39)
[2016-11-28 17:08] LABS: Glucose,Whole Blood 87 mg/dL (75-99)
--- NOTE | 2016-11-28 17:32 | PN ---
DATE OF SERVICE: 11/28/2016 This is a 56-year-old gentleman admitted with acute influenza A with possible sepsis present on admission. He is being closely monitored. Patient complaining of tiredness and weakness. Cardiology is following the patient closely. The possibility of myocarditis is being considered. Patient also has severe hypokalemia. No chest pain or palpitation. No fever. A 2-D echo has been ordered. On exam, alert and oriented x3. Pule is 72, blood pressure 135/79, respirations 20, temperature is 97.8, pulse ox 94% on room air. HEENT: Conjunctivae normal. NECK: No jugular venous distension. RESPIRATORY: Breath sounds diminished at the bases. A few scattered rhonchi, no crackles. Abdomen is soft, nontender. EXTREMITIES: Legs no edema, no swelling. NERVOUS SYSTEM: No focal deficits. LABS: WBC is 19.9, hemoglobin is 15.4. Sodium 137, potassium 2.9. ASSESSMENT: 1. Acute influenza A with possible sepsis, present on admission. 2. Acute purulent tracheobronchitis. 3. Severe hypokalemia, rule out myocardial infarction. 4. Increased QT interval. 5. History of ST-changes on the EKG. 6. Increased random blood sugar. 7. Increased hemoglobin with possible dehydration, present on admission. 8. Obesity with body mass index of 34.6. 9. Hypertension. 10. Hyperlipidemia. 11. History of degenerative joint disease. 12. History of sleep apnea. 13. History of hypothyroidism. 14. History of CPAP. 15. History of colonic polyps. 16. History of degenerative joint disease. 17. FULL CODE. RECOMMENDATION: Recommend to continue with the current medications, continue to monitor closely and symptomatic treatment. Replete potassium and check magnesium. Guarded prognosis because of multiple complex medical issues. Further recommendations to follow.
[2016-11-28] MEDS ORDERED: IPRATROPIUM-ALBUTEROL 3 ML NEB INHALATION PRN (18:53)
[2016-11-28 21:26] LABS: Glucose,Whole Blood 110 mg/dL (75-99)
[2016-11-28] MEDS: ATORVASTATIN 80 MG TAB PO SCH (21:26)
[2016-11-28] MEDS: cloNIDine HCL 0.1 MG TAB PO SCH (21:27)
[2016-11-28] MEDS: MULTIVITAMINS, THERA 1 EACH TAB PO SCH (21:27)
[2016-11-28] MEDS: LACTOBACILLUS ACIDOPH & BULGAR 1 EACH PACKET PO SCH (21:34)
[2016-11-28] MEDS ORDERED: VANCOMYCIN 2,000 MG in SODIUM CHLORIDE 0.9% 500 ML IVPB SCH (22:00)
[2016-11-28] MEDS: TEMAZEPAM 15 MG CAP PO PRN (23:39)
[2016-11-29] MEDS: POTASSIUM CHLORIDE ER 20 MEQ TAB.ER PO SCH (01:43)
[2016-11-29] MEDS: 0.9% NACL WITH KCL 40 MEQ/L 1,000 ML IV SCH ×3 (04:28→20:35)
[2016-11-29] MEDS: IPRATROPIUM-ALBUTEROL 3 ML NEB INHALATION SCH ×4 (07:32→21:26)
[2016-11-29] MEDS: CHLORTHALIDONE 25 MG TAB PO SCH (08:17)
[2016-11-29] MEDS: DULoxetine HCL 60 MG CAPSULE.DR PO SCH (08:17)
[2016-11-29] MEDS: HEPARIN SODIUM,PORCINE 5,000 UNIT/ML 1 ML VIAL SQ SCH ×2 (08:17→20:34)
[2016-11-29] MEDS: PANTOPRAZOLE 40 MG TABLET PO SCH (08:18)
[2016-11-29] MEDS: OSELTAMIVIR 75 MG CAP PO SCH ×2 (08:18→20:34)
[2016-11-29] MEDS: amLODIPine 10 MG TAB PO SCH (08:18)
[2016-11-29] MEDS: HYDROcodone/APAP 5-325MG 1 EACH TAB PO PRN ×2 (08:19→14:00)
[2016-11-29] MEDS: INSULIN LISPRO (humaLOG) 300 UNIT/3 ML VIAL SQ SCH ×4 (08:24→21:40)
[2016-11-29 08:29] LABS: Glucose,Whole Blood 99 mg/dL (75-99)
[2016-11-29 09:18] LABS: CH 30.1; HCT 48.7 % (39.0-53.0); HDW 2.88; Immature Gran Flag Slight; MCH 29.2 pg (25.0-35.0); MCHC 32.8 g/dL (31.0-37.0); MCV 89.2 fL (80.0-100.0); Mean Platelet Volume 7.2; RBC 5.46 m/uL (4.30-5.90); RDW 13.4 % (11.5-15.5); WBC 15.2 k/uL (3.8-10.6); WBC (Perox) 15.52
[2016-11-29 09:30] LABS: Anion Gap 13 mmol/L; Carbon Dioxide 29 mmol/L (22-30); Chloride 99 mmol/L (98-107); Glucose 87 mg/dL (74-99); Non-African American GFR(MDRD) >60 (>60 ml/min/1.73 sqM); Sodium 141 mmol/L (137-145)
[2016-11-29 09:35] LABS: Blood Urea Nitrogen 19 mg/dL (9-20); Potassium 4.1 mmol/L (3.5-5.1)
[2016-11-29 10:41] LABS: Add Differential Manual Differential; Manual Review Performed
[2016-11-29 10:44] LABS: Myelocytes % 0.5 %; Nucleated Red Blood Cells 0 /100 WBC (0-0); RBC Morphology Normal; Total Cells Counted 200
--- NOTE | 2016-11-29 11:05 | PN ---
DATE OF SERVICE: 11/28/2016 Reason for follow-up: 1. Acute influenza A. 2. Positive blood culture. INTERVAL HISTORY: The patient is afebrile. He is complaining of some right lower rib cage chest pain, denies having worsening shortness of breath. However, did have a cough. Unable to bring any sputum up. No nausea. No vomiting. No abdominal pain. No diarrhea. On examination, blood pressure 136/85 with a pulse of 81, temperature 97.6. He is 92% on room air. General description is a middle-age male up in the bed in no distress. RESPIRATORY SYSTEM: Unlabored breathing. Some decreased breath sounds at the base. No wheeze. HEART: S1, S2. Regular rate and rhythm. ABDOMEN: Soft, no tenderness. LABS: Hemoglobin is 15.4, white count of 28.9, BUN of 16, creatinine 0.90. Blood culture with Streptococcus hemolyticus, although blood cultures has been negative. DIAGNOSTIC IMPRESSION AND PLAN: 1. Patient admitted to the hospital with not feeling well and cough, congestion in a patient with acute influenza A continue with Tamiflu to finish five days course of therapy. 2. Patient with + blood culture with staphylococcus hemolyticus likely a contamination, will discontinue the vancomycin. MTDD
[2016-11-29] MEDS ORDERED: guaiFENesin-Coden 100-10MG/5ML 10 ML CUP PO PRN (11:19)
--- NOTE | 2016-11-29 11:20 | ECHOF ---
Referral Reason:abnormal ekg MEASUREMENTS -------- HEIGHT: 185.4 cm WEIGHT: 117.9 kg BP: 136/85 RVIDd: 3.3 cm (< 3.3) IVSd: 1.2 cm (0.6 - 1.1) LVIDd: 5.0 cm (3.9 - 5.3) LVPWd: 1.3 cm (0.6 - 1.1) IVSs: 2.1 cm LVIDs: 3.7 cm LVPWs: 1.5 cm LA Diam: 4.2 cm (2.7 - 3.8) LAESV Index (A-L): 17.52 ml/m Ao Diam: 3.3 cm (2.0 - 3.7) AV Cusp: 1.8 cm (1.5 - 2.6) LA Diam: 3.5 cm (2.7 - 3.8) MV EXCURSION: 14.837 mm (> 18.000) MV EF SLOPE: 87 mm/s (70 - 150) EPSS: 0.5 cm MV E Lee: 0.80 m/s MV DecT: 206 ms MV A Lee: 0.93 m/s MV E/A Ratio: 0.87 RAP: 15.00 mmHg RVSP: 29.39 mmHg FINDINGS -------- Sinus rhythm. This was a technically good study. There is mild concentric left ventricular hypertrophy. Overall left ventricular systolic function is normal with, an EF between 55 - 60 %. The right ventricle is mildly enlarged. Normal LA size by volume 22+/-6 ml/m2. The right atrium is normal in size. Aortic valve is trileaflet and is mildly thickened. Mild mitral annular calcification present. Trace tricuspid regurgitation present. Right ventricular systolic pressure is normal at < 35 mmHg. Trace/mild (physiologic) pulmonic regurgitation. The aortic root size is normal. The inferior vena cava is dilated with no significant inspiratory collapse which is consistent estimated right atrial pressure of >20 mmHg. There is no pericardial effusion. CONCLUSIONS -------- 1. Sinus rhythm. 2. Trace tricuspid regurgitation present. 3. Right ventricular systolic pressure is normal at < 35 mmHg. 4. Trace/mild (physiologic) pulmonic regurgitation. 5. The aortic root size is normal. 6. The inferior vena cava is dilated with no significant inspiratory collapse which is consistent estimated right atrial pressure of >20 mmHg. 7. There is no pericardial effusion. 8. This was a technically good study. 9. There is mild concentric left ventricular hypertrophy. 10. Overall left ventricular systolic function is normal with, an EF between 55 - 60 %. 11. The right ventricle is mildly enlarged. 12. Normal LA size by volume 22+/-6 ml/m2. 13. The right atrium is normal in size. 14. Aortic valve is trileaflet and is mildly thickened. 15. Mild mitral annular calcification present. DUE DILIGENCE COORDINATOR: Yadiel Morales RDCS
[2016-11-29 12:23] LABS: Glucose,Whole Blood 114 mg/dL (75-99)
--- NOTE | 2016-11-29 16:57 | PN ---
DATE OF SERVICE: 11/29/2016 REASON FOR FOLLOWUP: 1. Acute influenza A. 2. Positive blood culture. 3. Leukocytosis. INTERVAL HISTORY: The patient is afebrile. He is feeling slightly better today. His cough has decreased in intensity. Still has some chest pain. some cough not bringing up any sputum. No nausea, vomiting. No abdominal pain or any diarrhea. On examination, blood pressure is 136/87 with a pulse of 76, temperature 96.7. He is 96% on room air. General description is a middle-aged male lying in bed in no distress. RESPIRATORY SYSTEM: Unlabored breathing. Some decreased breath sounds at the base. No wheeze. HEART: S1, S2. Regular rate and rhythm. ABDOMEN: Soft. No tenderness. LABS: Hemoglobin is 16 with a white count of 15.2 with a BUN of 19, creatinine 0.94. DIAGNOSTIC IMPRESSION AND PLAN: 1. Patient with acute influenza A, for which the patient continues on Tamiflu. To finish a 5-day course of therapy. 2. Patient with a positive blood culture with Streptococcus haemolyticus, likely skin contamination. No need for further therapy for the same. 3. Patient with leukocytosis, more likely steroid effect, as he was on Solu-Medrol. That has been discontinued. White count is showing a downward trend. No need for further workup for the same. MTDD
[2016-11-29 17:06] LABS: Glucose,Whole Blood 107 mg/dL (75-99)
[2016-11-29] MEDS: LACTOBACILLUS ACIDOPH & BULGAR 1 EACH PACKET PO SCH (20:33)
[2016-11-29] MEDS: MULTIVITAMINS, THERA 1 EACH TAB PO SCH (20:34)
[2016-11-29] MEDS: ATORVASTATIN 80 MG TAB PO SCH (20:34)
[2016-11-29] MEDS: cloNIDine HCL 0.1 MG TAB PO SCH (20:34)
[2016-11-29 20:59] LABS: Glucose,Whole Blood 106 mg/dL (75-99)
--- NOTE | 2016-11-29 21:58 | PN ---
DATE OF SERVICE: 11/29/2016 This 56-year-old gentleman who was admitted with acute influenza A is still complaining of weakness and tiredness. No chest pain. No palpitation. No fever. A 2-D echo was done today that showed ejection fraction about 50% to 60%. On exam, alert and oriented x3. Pulse is 76, blood pressure 136/87, respiration 18, temperature 96.7, pulse ox 96% on room air. HEENT: Conjunctivae normal. NECK: No jugular venous distention. CARDIOVASCULAR SYSTEM: S1, S2 muffled. RESPIRATORY: Breath sounds diminished at the bases. A few rhonchi. No crackles. ABDOMEN: Soft, nontender. LEGS: No edema. No swelling. NERVOUS SYSTEM: No focal deficit. LABS: WBC 15.2. Glucose 114. ASSESSMENT: 1. Acute influenza A with possible sepsis, present on admission. 2. Acute purulent tracheobronchitis. 3. Severe hypokalemia. 4. Increased QT interval. 5. ST-T changes on the EKG. 6. Normal ejection fraction on the 2-D echocardiogram. 7. Increased random blood sugar. 8. Increased hemoglobin with possible dehydration, present on admission. 9. Obesity with body mass index of 34.6. 10. Hypertension. 11. Rule out myocarditis. 12. Hyperlipidemia. 13. History of degenerative joint disease. 14. History of sleep apnea. 15. History of hypothyroidism. 16. History of CPAP. 17. History of colonic polyps. 18. FULL CODE. RECOMMENDATIONS AND DISCUSSION: In this 56-year-old gentleman who presented with multiple complex medical issues, we will monitor the patient closely, continue the current medication, continue symptomatic treatment, continue with empiric antibiotics. Guarded prognosis because of multiple complex medical issues. Further recommendations to follow.
[2016-11-30 07:40] LABS: Glucose,Whole Blood 112 mg/dL (75-99)
[2016-11-30] MEDS: INSULIN LISPRO (humaLOG) 300 UNIT/3 ML VIAL SQ SCH ×2 (07:47→13:07)
[2016-11-30] MEDS: IPRATROPIUM-ALBUTEROL 3 ML NEB INHALATION SCH ×4 (08:30→20:38)
[2016-11-30 08:57] LABS: CH 30.6; CHCM 34.6; HCT 49.8 % (39.0-53.0); HDW 2.81; HGB 16.6 gm/dL (13.0-17.5); Immature Gran Flag Moderate; MCH 29.7 pg (25.0-35.0); MCHC 33.4 g/dL (31.0-37.0); Mean Platelet Volume 7.2; RDW 13.2 % (11.5-15.5); WBC (Perox) 18.47
[2016-11-30 09:09] LABS: Anion Gap 14 mmol/L; Blood Urea Nitrogen 16 mg/dL (9-20); Calcium 8.9 mg/dL (8.4-10.2); Carbon Dioxide 26 mmol/L (22-30); Chloride 98 mmol/L (98-107); Glucose 143 mg/dL (74-99); Non-African American GFR(MDRD) >60 (>60 ml/min/1.73 sqM); Potassium 3.6 mmol/L (3.5-5.1); Sodium 138 mmol/L (137-145)
[2016-11-30] MEDS: HYDROcodone/APAP 5-325MG 1 EACH TAB PO PRN (09:38)
[2016-11-30] MEDS: HEPARIN SODIUM,PORCINE 5,000 UNIT/ML 1 ML VIAL SQ SCH ×2 (09:38→21:40)
[2016-11-30] MEDS: OSELTAMIVIR 75 MG CAP PO SCH (09:39)
[2016-11-30] MEDS: amLODIPine 10 MG TAB PO SCH (09:39)
[2016-11-30] MEDS: DULoxetine HCL 60 MG CAPSULE.DR PO SCH (09:39)
[2016-11-30] MEDS: PANTOPRAZOLE 40 MG TABLET PO SCH (09:39)
[2016-11-30] MEDS: CHLORTHALIDONE 25 MG TAB PO SCH (09:39)
[2016-11-30 10:40] LABS: Add Differential Manual Differential; Manual Review Performed; Toxic Granulation Present
[2016-11-30 10:43] LABS: Band Neutrophils % 1.5 %; Nucleated Red Blood Cells 0 /100 WBC (0-0); Total Cells Counted 200
[2016-11-30 12:04] LABS: Glucose,Whole Blood 95 mg/dL (75-99)
[2016-11-30] MEDS: 0.9% NACL WITH KCL 40 MEQ/L 1,000 ML IV SCH (13:08)
[2016-11-30] MEDS ORDERED: INFLUENZA VACCINE (3YR+) 60 MCG/0.5 ML SYRINGE IM ONE (15:00)
[2016-11-30] MEDS ORDERED: PNEUMOCOCCAL VACC-PNEUMOVAX 23 25 MCG/0.5 ML VIAL IM ONE (15:00)
--- NOTE | 2016-11-30 15:21 | P.PN ---
Subjective Date of service 11/30/2016. Progress note being dictated for Dr. Heath. Interval history: This a 56-year-old gentleman admitted with acute influenza A, possible sepsis, acute purulent tracheobronchitis and multiple other medical issues. Patient also presented with EKG with nonspecific ST-T changes, attributed to hypokalemia per cardiology. Potassium currently 3.6 on potassium replacement protocol .Maintained on IV antibiotics as per infectious disease. Tamiflu regimen completed. Continues to have nonproductive cough, denies chest pain, or palpitations. 2-D echo reported normal LV function, EF 50-60%. One Initial blood culture with Staphylococcus haemolyticus, repeat blood culture negative at 72 hours. Afebrile. Objective - Vital Signs Vital signs: Vital Signs Temp 96.4 F L 11/30/16 07:00 Pulse 86 11/30/16 08:00 Resp 16 11/30/16 08:00 BP 140/80 11/30/16 07:00 Pulse Ox 96 11/30/16 07:00 Intake & Output 11/29/16 11/30/16 11/30/16 18:59 06:59 18:59 Intake Total 240 Balance 240 Intake: Oral 240 Other: Voiding Method Toilet Toilet # Voids 1 - Exam PHYSICAL EXAM: VITAL SIGNS: As above GENERAL: [Sitting up in bed, no acute distress] HEENT: [Pupils equal conjunctiva normal.] NECK: [Supple, no JVD] RESPIRATORY EFFORT:[Mildly Increased] LUNGS: [Essentially clear with occasional Scattered rhonchi throughout, no crackles, no wheezes] CARDIOVASCULAR[regular S1-S2, no murmurs rubs or gallops] GI: [Abdomen soft, nontender, positive bowel sounds.] PSYCH: [Alert and oriented -3, mood and affect normal.] NEURO: No focal deficits, moves all 4 extremities, strength and sensation grossly intact Microbiology 11/25/16 18:31 Blood Blood Culture - Final 11/26/16 15:49 Blood Blood Culture - Preliminary No Growth after 72 hours 11/25/16 18:31 Blood Blood Culture Gram Stain - Final 11/25/16 18:31 Blood Blood Culture - Final Staphylococcus haemolyticus - Labs CBC & Chem 7: 11/30/16 08:37 11/30/16 08:37 Labs: Abnormal Lab Results - Last 24 Hours (Table) 11/29/16 11/29/16 11/30/16 Range/Units 17:04 20:57 07:07 WBC (3.8-10.6) k/uL Neutrophils # (Manual) (1.3-7.7) k/uL Lymphocytes # (Manual) (1.0-4.8) k/uL Glucose (74-99) mg/dL POC Glucose (mg/dL) 107 H 106 H 112 H (75-99) mg/dL 11/30/16 11/30/16 Range/Units 08:37 08:37 WBC 18.0 H (3.8-10.6) k/uL Neutrophils # (Manual) 10.4 H (1.3-7.7) k/uL Lymphocytes # (Manual) 5.8 H (1.0-4.8) k/uL Glucose 143 H (74-99) mg/dL POC Glucose (mg/dL) (75-99) mg/dL Assessment and Plan Plan: 1. Acute influenza A with possible sepsis, present on admission. Initial positive blood culture with Streptococcus haemolyticus, suspect contamination, repeat blood culture negative at 72 hours. 2. Acute purulent tracheobronchitis. 3. [Severe hypokalemia, improving]. 4. [Increased QT interval]. 5. [ST-T changes per EKG, attributed to hypokalemia per cardiology]. 6. [Normal EF per echo]. 7. [Increased random blood sugar 8. Increased hemoglobin of possible dehydration present on admission]. 9. Obesity, BMI 34.3 10. Hypertension 11. Rule out myocarditis 12. Hyperlipidemia 13. Degenerative joint disease 14. Sleep apnea, uses CPAP 15. Hypothyroidism 16. History of colonic polyps 17. Leukocytosis, suspect related to steroids, which have been discontinued. Plan: Continue on current medication regime, empiric antibiotics, nebulized bronchodilators, monitoring and symptomatic treatment. Continue on potassium replacement protocol. Magnesium level pending. Antibiotics as per infectious disease. Discharge planning in progress for tomorrow. Further recommendations to follow. The impression and plan of care has been dictated as directed. : I performed a H&P examination of this patient and discussed the same with the dictator. I agree with the dictator's note. Any additional findings/opinions/ etc. will be noted.
--- NOTE | 2016-11-30 17:02 | XR ---
EXAMINATION TYPE: XR chest 2V DATE OF EXAM: 11/30/2016 4:55 PM COMPARISON: 11/27/2016 INDICATION: Right lower rib cage pain TECHNIQUE: Single frontal view of the chest is obtained. FINDINGS: The heart size is normal. The pulmonary vasculature is normal. On the lateral projection there is a linear opacity in the anterior portion of the lung. Some plate a telectasis is likely present. There is elevation of the right diaphragm. IMPRESSION: 1. Mild plate atelectasis identified on the lateral projection. 2. Suspicious consolidation at the right base is not identified.
--- NOTE | 2016-11-30 19:42 | PN ---
DATE OF SERVICE: 11/30/2016 REASON FOR FOLLOWUP: 1. Acute influenza A. 2. Leukocytosis. INTERVAL HISTORY: The patient is afebrile. He is still complaining of some sore throat, though. He still has some pain, especially when he coughs, in the right lower chest area. The patient denies any abdominal pain. No nausea or vomiting. On examination, 131/57 with a pulse of 85, temperature 97.2. He is 96% on room air. General description is a middle-aged male lying in bed in no distress. RESPIRATORY SYSTEM: Unlabored breathing. Clear to auscultation anteriorly. HEART: S1, S2. Regular rate and rhythm. ABDOMEN: Soft. No tenderness. LABS: Hemoglobin is 16.6 with a white count of 18,000. BUN of 16, creatinine 0.88. DIAGNOSTIC IMPRESSION AND PLAN: 1. Patient with acute influenza A. The patient has finished his 5-day course of therapy. 2. Patient with elevated white count, more likely secondary to steroid effect. 3. Patient with persistent pain in the right lower chest area. Will repeat a chest x-ray, PA and lateral, tomorrow, to make sure no evidence of developing pneumonia. That will help determine his discharge antibiotics. Continue supportive care.
--- NOTE | 2016-11-30 20:19 | PN ---
DATE OF SERVICE: 11/30/2016 This 56-year-old gentleman who was admitted with influenza as well as multiple other complex medical issues is being closely monitored. The patient still complains of tiredness and weakness. The chest x-ray showed some atelectasis and consolidation. Seen and evaluated the patient along with the nurse practitioner. Please refer to the nurse practitioner's notes and impressions documented as a scribe for further information. Prognosis guarded.
[2016-11-30] MEDS: MULTIVITAMINS, THERA 1 EACH TAB PO SCH (21:40)
[2016-11-30] MEDS: cloNIDine HCL 0.1 MG TAB PO SCH (21:40)
[2016-11-30] MEDS: ATORVASTATIN 80 MG TAB PO SCH (21:40)
[2016-11-30] MEDS: LACTOBACILLUS ACIDOPH & BULGAR 1 EACH PACKET PO SCH ×2 (21:40→21:46)
[2016-12-01] MEDS: 0.9% NACL WITH KCL 40 MEQ/L 1,000 ML IV SCH (00:40)
[2016-12-01] MEDS: IPRATROPIUM-ALBUTEROL 3 ML NEB INHALATION SCH ×2 (07:32→11:22)
[2016-12-01 07:43] VITALS: BP 119/73; PULSE 67; RESP 20; TEMP 97
[2016-12-01] MEDS: CHLORTHALIDONE 25 MG TAB PO SCH (08:53)
[2016-12-01] MEDS: amLODIPine 10 MG TAB PO SCH (08:53)
[2016-12-01] MEDS: PANTOPRAZOLE 40 MG TABLET PO SCH (08:53)
[2016-12-01] MEDS: DULoxetine HCL 60 MG CAPSULE.DR PO SCH (08:53)
[2016-12-01] MEDS: HEPARIN SODIUM,PORCINE 5,000 UNIT/ML 1 ML VIAL SQ SCH (08:53)
[2016-12-01 10:24] LABS: CH 30.2; CHCM 34.1; HCT 48.1 % (39.0-53.0); HDW 2.75; Immature Gran Flag Moderate; MCH 29.7 pg (25.0-35.0); MCHC 33.2 g/dL (31.0-37.0); MCV 89.3 fL (80.0-100.0); RBC 5.39 m/uL (4.30-5.90); RDW 13.1 % (11.5-15.5); WBC 17.2 k/uL (3.8-10.6); WBC (Perox) 17.29
[2016-12-01 10:46] LABS: Add Differential Manual Differential
[2016-12-01 10:48] LABS: Manual Review Performed; Nucleated Red Blood Cells 0 /100 WBC (0-0); Total Cells Counted 100; Toxic Granulation Present
[2016-12-01 10:49] LABS: RBC Morphology Normal
[2016-12-01 10:50] LABS: Anion Gap 12 mmol/L; Blood Urea Nitrogen 16 mg/dL (9-20); Calcium 9.2 mg/dL (8.4-10.2); Carbon Dioxide 30 mmol/L (22-30); Chloride 98 mmol/L (98-107); Glucose 95 mg/dL (74-99); Non-African American GFR(MDRD) >60 (>60 ml/min/1.73 sqM); Potassium 3.7 mmol/L (3.5-5.1); Sodium 140 mmol/L (137-145)
--- NOTE | 2016-12-02 08:24 | DS ---
DATE OF ADMISSION: 11/27/2016 DATE OF DISCHARGE: 12/01/2016 DATE OF SERVICE: 12/01/2016 FINAL DIAGNOSES: 1. Acute influenza A with possible sepsis, present on admission. Initial blood culture positive for Staphylococcus haemolyticus, possible contamination per Infectious Disease. 2. Acute purulent tracheobronchitis. 3. Severe hypokalemia, improved. 4. Increased QT interval, stable. 5. ST-T changes on the EKG, attributed to hypokalemia per cardiology. 6. Normal ejection fraction per 2-D echo. 7. Increased random blood sugar. 8. Myocarditis ruled out. 9. Increased hemoglobin with possibly dehydration present on admission. 10. Obesity, body mass index 34.3. 11. Hypertension. 12. Hyperlipidemia. 13. Degenerative joint disease. 14. Sleep apnea, uses CPAP. 15. Hypothyroidism. 16. History of colon polyps. 17. Leukocytosis, suspect related to steroids. 18. FULL CODE. DISCHARGE DISPOSITION: The patient will be discharged in a stable condition with guarded prognosis. HISTORY OF PRESENT ILLNESS: This 56-year-old gentleman with a past medical history of multiple medical problems was admitted acute influenza and as well as multiple other complications. The patient was treated in conjunction with Infectious Disease and as well as Cardiology. Care was coordinated. A 2-D echo was noted. Patient improved significantly. On exam, vitals are stable. CARDIOVASCULAR SYSTEM: S1, S2 muffled. RESPIRATORY; A few rhonchi. ABDOMEN: Soft. NERVOUS SYSTEM: No focal deficits. DISCHARGE ADVICE: 1. Diet is cardiac. 2. Activity limited until followup. 3. Follow up with Dr. Tovar in 2 to 3 days. 4. Follow up with a CBC, BMP. 5. Follow up with Cardiology as recommended. Medications are: 1. Albuterol 1 to 2 puffs q.6 and p.r.n. 2. Lipitor 80 mg q.h.s. 3. Hygroton 50 mg p.o. daily. 4. Vitamin D3, 5000 q.h.s. 5. Cymbalta 60 mg p.o. daily. 6. Hall 5 mg q.6 p.r.n. 7. Probiotic 1 capsule p.o. q.h.s. 8. Multivitamins 1 p.o. q.h.s. 9. Promethazine codeine 5 mL q.6 p.r.n. 10. Norvasc 10 mg p.o. daily. 11. Catapres 0.3 q.h.s. Once again, the patient will be discharged in stable condition with guarded prognosis.
== END 2016-12-01 12:12 | disposition home or self-care (01) | DRG 872 ==
LOC: EC 16:37 → 4MS4W 20:15 → OBSVTOIN 11-27 14:57
PROVIDERS: ADMIT Internal Medicine; ATTEND Internal Medicine
PROC: 3E0234Z Introduction of Serum, Toxoid and Vaccine into Muscle, Percutaneous Approach (ICD-10-PCS; principal; 2016-12-01)
PROC: 3E0234Z Introduction of Serum, Toxoid and Vaccine into Muscle, Percutaneous Approach (ICD-10-PCS; 2016-12-01)
DX: A41.89 Other specified sepsis (principal); I10 Essential (primary) hypertension; J98.11 Atelectasis; E87.6 Hypokalemia; M19.90 Unspecified osteoarthritis, unspecified site; T38.0X5A Adverse effect of glucocorticoids and synthetic analogues, initial encounter; J20.8 Acute bronchitis due to other specified organisms; J10.1 Influenza due to other identified influenza virus with other respiratory manifestations; E86.0 Dehydration; D72.829 Elevated white blood cell count, unspecified; E66.9 Obesity, unspecified; E78.5 Hyperlipidemia, unspecified; E03.9 Hypothyroidism, unspecified; R53.1 Weakness; R06.2 Wheezing; G47.30 Sleep apnea, unspecified; G89.29 Other chronic pain; M54.9 Dorsalgia, unspecified; R73.09 Other abnormal glucose; R94.31 Abnormal electrocardiogram [ECG] [EKG]; Z86.010 Personal history of colon polyps; Z68.34 Body mass index [BMI] 34.0-34.9, adult; Z80.9 Family history of malignant neoplasm, unspecified; Z79.899 Other long term (current) drug therapy; Z23 Encounter for immunization; Z80.0 Family history of malignant neoplasm of digestive organs
CPT/HCPCS: 36415; 71010; 71020; 80048; 80053; 80202; 81003; 83735; 84132; 84484; 85025; 85379; 87040; 87077; 87186; 87502; 90686; 90732; 93005; 93306; 94640; 96361; 96366; 96367; 96368; 96372; 96374; 96376; 99285

== ENCOUNTER 2018-03-23 08:06 | Day surgery (SDC) | payer OTHER ==
[2018-03-20 14:52] VITALS: BMI 34.7
[2018-03-23] MEDS ORDERED: LACTATED RINGERS 1,000 ML IV ONE (08:53)
[2018-03-23 08:55] VITALS: TEMP 97.7
[2018-03-23] MEDS ORDERED: LIDOCAINE 1% INJ 10MG/ML (20 ML MDV) ONE (09:29)
[2018-03-23] MEDS ORDERED: PROPOFOL 10 MG/ML 20 ML VIAL IV ONE (09:29)
[2018-03-23 10:22] VITALS: BP 137/73; PULSE 65; RESP 16
--- NOTE | 2018-03-23 11:43 | P.PCN ---
Date of Procedure: 03/23/18 Procedure(s) Performed: Procedure: Esophagogastroduodenoscopy and biopsy. Preoperative diagnosis: Chronic reflux symptoms and dysphagia. Postoperative diagnosis: 1. Hiatal hernia with distal esophagitis but no restricting strictures or Douglas's esophagus. 2. Mild antral gastritis. 3. Biopsies obtained from the antrum and esophagus. Preparation and sedation: Was provided by anesthesia. Brief clinical history: The patient is a 57-year-old male who is scheduled for this evaluation because of chronic reflux symptoms and history of dysphagia. The patient has no weight loss, bleeding or anemia. Procedure: With the patient on his left lateral decubitus position and after informed consent and adequate sedation, I passed the Olympus-GIF 160 video upper endoscope through the cricopharyngeus down the esophagus. GE junction was around 40-41 cm from the incisors and there was a sliding hiatal hernia. The distal esophagus showed multiple erosions and small ulcerations consistent with LA grade C distal esophagitis but there was no evidence of Douglas's esophagus or definite strictures. There was the early appearance of pseudodiverticulosis in the distal esophagus that could be related to chronic esophagitis and luminal narrowing not enough to be appreciated endoscopically. The endoscope was then passed into the stomach which was insufflated with air and inspected in detail including the retroflex view in the cardia. There was minimal mottling and erythema in the antrum but no ulcers or erosions. Pyloric channel, duodenal bulb, post bulbar area and descending duodenum appeared within normal limits. I obtained biopsies from the antrum and esophagus then the endoscope was withdrawn. The patient tolerated the procedure well. Plan: The patient was reassured. Will await biopsy results. The patient was given instructions for antireflux diet and measures and I gave him a prescription of Protonix 40 mg which he will take twice a day for the first month then once daily after that. If after healing of his esophagitis he continues to have swallowing issues, I would repeat his endoscopy for the purpose of dilation as necessary.
== END 2018-03-23 10:32 | disposition home or self-care (01) ==
LOC: ORWHC2ENDO 08:06
DX: K22.10 Ulcer of esophagus without bleeding (principal); K29.50 Unspecified chronic gastritis without bleeding; K21.0 Gastro-esophageal reflux disease with esophagitis; K44.9 Diaphragmatic hernia without obstruction or gangrene; G47.33 Obstructive sleep apnea (adult) (pediatric); I10 Essential (primary) hypertension; E78.5 Hyperlipidemia, unspecified; M19.90 Unspecified osteoarthritis, unspecified site; M54.9 Dorsalgia, unspecified; E07.9 Disorder of thyroid, unspecified; Z79.82 Long term (current) use of aspirin; Z79.890 Hormone replacement therapy; Z79.899 Other long term (current) drug therapy
CPT/HCPCS: 88305; 43239; J2001; J2704

== ENCOUNTER → 2018-06-06 | Outpatient (CLI) | payer OTHER ==
--- NOTE | 2018-06-07 14:35 | ECHOF ---
Referral Reason:R55 Syncope MEASUREMENTS -------- HEIGHT: 185.4 cm WEIGHT: 121.6 kg BP: RVIDd: 3.0 cm (< 3.3) IVSd: 1.3 cm (0.6 - 1.1) LVIDd: 4.5 cm (3.9 - 5.3) LVPWd: 1.2 cm (0.6 - 1.1) IVSs: 1.4 cm LVIDs: 3.4 cm LVPWs: 1.3 cm LAESV Index (A-L): 22.56 ml/m Ao Diam: 3.9 cm (2.0 - 3.7) AV Cusp: 1.8 cm (1.5 - 2.6) LA Diam: 3.3 cm (2.7 - 3.8) MV EXCURSION: 14.924 mm (> 18.000) MV EF SLOPE: 75 mm/s (70 - 150) EPSS: 0.8 cm MV E Lee: 0.73 m/s MV DecT: 285 ms MV A Lee: 0.73 m/s MV E/A Ratio: 1.00 RAP: 5.00 mmHg RVSP: 9.27 mmHg FINDINGS -------- Sinus rhythm. This was a technically adequate study. The left ventricular size is normal. There is mild concentric left ventricular hypertrophy. Overa ll left ventricular systolic function is normal with, an EF between 55 - 60 %. The right ventricle is normal in size and function. Normal LA size by volume 22+/-6 ml/m2. The right atrium is normal in size. The aortic valve is trileaflet and appears structurally normal. There is no evidence of aortic regu rgitation. There is no evidence of aortic stenosis. The mitral valve leaflets are mildly thickened. There is trace to mild mitral regurgitation. Trace tricuspid regurgitation present. Right ventricular systolic pressure is normal at < 35 mmHg. There is no evidence of pulmonary hypertension. The pulmonic valve was not well visualized. The aortic root is mildy dilated, up to 3.8 cm. IVC Not well visulized. There is no pericardial effusion. CONCLUSIONS -------- 1. Sinus rhythm. 2. This was a technically adequate study. 3. The left ventricular size is normal. 4. There is mild concentric left ventricular hypertrophy. 5. Overall left ventricular systolic function is normal with, an EF between 55 - 60 %. 6. Normal LA size by volume 22+/-6 ml/m2. 7. The aortic valve is trileaflet and appears structurally normal. 8. The mitral valve leaflets are mildly thickened. 9. There is trace to mild mitral regurgitation. 10. Trace tricuspid regurgitation present. 11. Right ventricular systolic pressure is normal at < 35 mmHg. 12. There is no evidence of pulmonary hypertension. 13. The pulmonic valve was not well visualized. 14. The aortic root is mildy dilated, up to 3.8 cm. 15. IVC Not well visulized. 16. There is no pericardial effusion. PROSTHETIC MAKEUP DESIGNER: Greg Cardenas RDCS
== END | disposition home or self-care (01) ==
LOC: RADECHMAIN 15:30
PROVIDERS: ATTEND Internal Medicine Critical Care Medicine
DX: I05.9 Rheumatic mitral valve disease, unspecified (principal); I77.819 Aortic ectasia, unspecified site
CPT/HCPCS: 93306

== ENCOUNTER → 2018-09-01 | Outpatient (CLI) | payer OTHER | LOC: LABWHC1 09:46 | PROVIDERS: ATTEND Internal Medicine Cardiovascular Disease | DX: R06.00 Dyspnea, unspecified (principal) | CPT/HCPCS: 36415; 82565; 84520 ==

== ENCOUNTER → 2021-10-12 | Outpatient (CLI) | payer OTHER | END | disposition home or self-care (01) | LOC: LABWHC1 11:57 | PROVIDERS: ATTEND Nurse Practitioner Family | DX: U07.1 COVID-19 (principal) | CPT/HCPCS: U0003; C9803 ==

== ENCOUNTER → 2023-09-27 | Outpatient (CLI) | payer OTHER ==
--- NOTE | 2023-09-27 16:38 | P.SLEEP ---
History of Present Illness H&P Date: 09/27/23 This is a very pleasant 62-year-old male patient. The patient is known to me as the patient has been diagnosed having obstructive sleep apnea, and mild case with an AHI of 10 and he was also diagnosed having a behavioral disorder many years back and she had with low-dose Klonopin at 0.5 mg with adequate control. I have lost to follow-up this patient and over the years he quits using his CPAP. Over the past 1 year, the patient was having new onset neurological tremors, some rigidity addition to lack of motivation and in addition. He was also having some occasional swallowing difficulties and drooling. At that time, the patient was seen by neurology service and he was diagnosed having Par kinson's disease. He is currently on Sinemet and some of his symptoms improved. Meanwhile, the issue of sleep apnea is being revisited and the patient is interested in going back on a CPAP machine and for that reason he came to me. He has a functional CPAP unit which I checked and this is an APAP unit which is set at a minimum pressure of 5 and a neck some pressure of 20. He also has a barbara view facemask. Nevertheless, he hasn't utilizes machine at home. Also, He has not been using the Klonopin and symptoms of Remicade insulin has not been active for the time being. He has history of depression, hyperlipidemia and hypertension. He is snorting. There was also noted witnessed apneas. He is going to bed at around 10 PM, wake up 7 in the morning. He has trouble with fatigue and tiredness and lipid his concentration. His chronic anxiety and depression. No significant weight gain. The pro-score is at 8. Review of Systems Constitutional: Reports daytime sleepiness, Reports fatigue, Reports lethargy Eyes: denies as per HPI, denies blurred vision, denies bulging eye, denies decreased vision, denies diplopia, denies discharge, denies dry eye, denies irritation, denies itching, denies pain, denies photophobia, denies loss of peripheral vision, denies loss of vision, denies tunnel vision/blind spots Ears: deny: decreased hearing, ear discharge, earache, tinnitus Ears, nose, mouth and throat: Reports as per HPI Breasts: absent: as per HPI, gynecomastia Cardiovascular: Reports as per HPI Respiratory: Reports sleep apnea, Reports snoring Gastrointestinal: Reports as per HPI Genitourinary: Reports as per HPI Musculoskeletal: Reports as per HPI Musculoskeletal: absent: ankle pain, ankle stiffness, ankle swelling, as per HPI, elbow pain, elbow stiffness, elbow swelling, foot pain, foot stiffness, foot swelling, hand pain, hand stiffness, hand swelling, hip pain, hip stiffness, hip swelling, knee pain, knee stiffness, knee swelling, shoulder pain, shoulder stiffness, shoulder swelling, wrist pain, wrist stiffness, wrist swelling Integumentary: Reports as per HPI Neurological: Reports tremors, Reports weakness Psychiatric: Reports as per HPI Endocrine: Reports as per HPI, Reports fatigue Hematologic/Lymphatic: Reports as per HPI Allergic/Immunologic: Reports as per HPI Past Medical History Past Medical History: GERD/Reflux, Hyperlipidemia, Hypertension, Musculoskeletal Disorder, Osteoarthritis (OA), Pneumonia, Sleep Apnea/CPAP/BIPAP, Thyroid Disorder Additional Past Medical History / Comment(s): Parkinson disease, obstructive sleep apnea, REM behavior disorder, history of peptic ulcer disease, history of heartburn, history of choking and spells, chronic back pain, history of pneumonia back in November 2016 History of Any Multi-Drug Resistant Organisms: None Reported Past Surgical History: Adenoidectomy, Orthopedic Surgery, Tonsillectomy Additional Past Surgical History / Comment(s): left knee arthroscopy, pain procedures, surg. for sleep apnea, colonoscopy Past Anesthesia/Blood Transfusion Reactions: Postoperative Nausea & Vomiting (PONV) Additional Past Anesthesia/Blood Transfusion Reaction / Comment(s): nausea, slow to wake up Past Psychological History: No Psychological Hx Reported Past Alcohol Use History: Occasional Past Drug Use History: None Reported - Past Family History Mother Family Medical History: Cancer Additional Family Medical History / Comment(s): colon Medications and Allergies Home Medications and Allergies Comment(s): Patient is currently on Sinemet 25/100 one tablet 3 times a day, Norvasc 10 mg by mouth daily, Irbesartan 150 mg by mouth daily, Pristiq 100 mg daily, vraylar 3 mg daily, Protonix 40 mg by mouth daily, clonidine 0.2 mg twice a day, Lipitor 80 mg by mouth daily, aspirin 81 mg by mouth daily, and Profen as needed, tramadol as needed. Home Medications Medication Instructions Recorded Confirmed Type Atorvastatin [Lipitor] 80 mg PO HS 08/03/16 03/20/18 History Cholecalciferol [Vitamin D3 (25 5,000 unit PO HS 08/03/16 03/23/18 History Mcg = 1000 Iu)] DULoxetine HCL [Cymbalta] 60 mg PO DAILY 08/03/16 03/20/18 History Multivitamin [Men's Multi-Vitamin] 1 tab PO HS 08/03/16 03/20/18 History amLODIPine [Norvasc] 10 mg PO DAILY 08/03/16 03/23/18 History cloNIDine HCL [Catapres] 0.3 mg PO HS 08/03/16 03/20/18 History L.acidoph,Paracasei, B.lactis 1 cap PO HS 11/25/16 03/20/18 History [Probiotic] Acetaminophen [Tylenol Arthritis] 650 mg PO Q6H PRN 03/20/18 03/20/18 History Aspirin 81 mg PO DAILY 03/20/18 03/20/18 History Docusate [Colace] 100 mg PO HS 03/20/18 03/20/18 History Irbesartan [Avapro] 150 mg PO DAILY 03/20/18 03/23/18 History Levothyroxine Sodium [Synthroid] 75 mcg PO DAILY 03/20/18 03/20/18 History Allergies Allergy/AdvReac Type Severity Reaction Status Date / Time No Known Allergies Allergy Verified 03/23/18 08:52 Physical Exam BP is 136/84, pulse is 69, respirations 12, temperature 97.7, weight is 272, oxygen saturation 97% on room air, height is 511, weight is 272 pounds, Grady score is at 8, size of the neck is 19 inches and the patient has a body mass index of 37.1 The patient appeared well nourished and normally developed. Vital signs as documented. Head exam is unremarkable. No scleral icterus or corneal arcus noted. Neck is without jugular venous distension, thyromegaly, or carotid bruits. Carotid upstrokes are brisk bilaterally. Lungs are clear to auscultation and percussion. Cardiac exam reveals the PMI to be normally sized and situated. Rhythm is regular. First and second heart sounds normal. No murmurs, rubs or gallops. Abdominal exam reveals normal bowel sounds, no masses, no organomegaly and no aortic enlargement. Extremities are nonedematous and both femoral and pedal pulses are normal.Examination of the skin revealed no evidence of significant rashes, suspicious appearing nevi or other concerning lesions. Neurologically, the patient is awake and alert and the patient does not have any focal neurological deficit. Cranial nerves are essentially intact. The patie nt has developed some poker facies and some resting tremors. Assessment and Plan Plan: Obstructive sleep apnea, the patient had mildly elevated at time of his original diagnosis many years back and he had an AHI of 10 and was being treated with APAP machine pressures of 5/20 cm of water. His been off treatment for many years. REM behavioral disorder probably related to his Parkinson's disease. Initially treated with Klonopin and currently is off treatment. Parkinson's disease currently on Sinemet Hypertension History of depression Hypertension Hyperlipidemia Obesity with a body mass index of 37.1 Chronic fatigue and sleepiness. This could be related to sleep apnea although Parkinson's disease and has been also contributing to symptoms Plan I asked the patient to go back on his APAP unit pressures of 5/20 cm of water and I'm going to monitor his compliancy. Meanwhile, I kept him on the same mask interface. The patient is going to undergo a home sleep study to evaluate the presence and severity of sleep apnea. Continue treatment of comorbidities especially with his Parkinson's disease. No need for any active treatment for REM behavior disorder and the patient is not having any major or disturbing symptoms related to a gram-negative behavioral disorder overnight. Encourage weight loss Maintain regular sleep schedule Treat comorbidities We'll continue to follow Sleep Note - Sleep Note Sleep Note: Temperature: Pulse Rate: Respiratory Rate: Blood Pressure: SpO2: Height: Weight: BMI: Neck Circumference:
== END ==
LOC: 3 N SLEEP 13:41
PROVIDERS: ATTEND Internal Medicine Critical Care Medicine
DX: G47.33 Obstructive sleep apnea (adult) (pediatric) (principal); E78.5 Hyperlipidemia, unspecified; I10 Essential (primary) hypertension; E66.9 Obesity, unspecified; F32.A Depression, unspecified; R53.82 Chronic fatigue, unspecified; G20.A1 Parkinson's disease without dyskinesia, without mention of fluctuations; G47.52 REM sleep behavior disorder; E07.9 Disorder of thyroid, unspecified; K21.9 Gastro-esophageal reflux disease without esophagitis; G89.29 Other chronic pain; Z68.37 Body mass index [BMI] 37.0-37.9, adult; Z79.82 Long term (current) use of aspirin; Z79.899 Other long term (current) drug therapy; Z87.11 Personal history of peptic ulcer disease; Z79.890 Hormone replacement therapy; Z87.39 Personal history of other diseases of the musculoskeletal system and connective tissue
CPT/HCPCS: 99211

== ENCOUNTER → 2025-03-12 | Outpatient (CLI) | payer OTHER | END | disposition home or self-care (01) | LOC: LABWHC1 15:49 | PROVIDERS: ATTEND Urology | DX: R97.20 Elevated prostate specific antigen [PSA] (principal) | CPT/HCPCS: 36415; 84153 ==

== ENCOUNTER → 2025-04-09 | Outpatient (CLI) | payer OTHER ==
--- NOTE | 2025-04-09 13:53 | MR ---
EXAMINATION TYPE: MR Prostate wo/w con DATE OF EXAM: 04/09/2025 7:33 AM COMPARISON: None. CLINICAL INDICATION: Male, 64 years old with history of R97.20 ELEVATED PROSTATE SPECIFIC ANTIGEN [PS A]; Elevated PSA TECHNIQUE: Multi-planar, multi-sequence imaging of the pelvis is performed prior to and following the uncomplicated administration of bolus intravenous gadolinium. IV Contrast: 10 mL Gadobutrol Interpretive Criteria: PI-RADS v2.1 SERUM PSA: 02/2025= 7.18 01/2025=5.13 06/2023=3.1 SURGICAL PATHOLOGY: No data available. FINDINGS: Prostatic dimensions: 4.9 x 5.4 x 3.8 cm. Ellipsoid Volume: 52.65 (PSA density=0.14 ng/mL/mL) CENTRAL GLAND (Central and Transition Zones/CZ+TZ): Multiple bilateral, heterogenous appearing hypertrophic stromal nodules, without suspicious lesion. M edian lobe hypertrophy with protrusion into the base of the bladder. (PI-RADS 2) PERIPHERAL ZONE (PZ): Bilateral linear, indistinct wedgelike areas of low ADC, and low T2 signal, No evidence of masslike a bnormality, or localized perfusional hypervascularity, to further suggest a focus of clinically signi ficant prostate cancer. (PI-RADS 2) SEMINAL VESICLES (SV): Symmetric and unremarkable. PERIPROSTATIC TISSUES: Unremarkable. LYMPH NODES: No enlarged pelvic lymph node. REMAINING PELVIS: Bladder wall is within normal limits given distention. No abnormal free or organized intrapelvic fluid collection. No pathologic bowel dilation or mural thickening. Bilateral fat containing inguinal hernias. OSSEOUS STRUCTURES: No suspicious osseous abnormality. High T2 signal lesion in the left iliac bone measuring up to 28 mm . Degeneration changes of the spine noted with disc space narrowing osteophyte formation. IMPRESSION: 1. No specific features for high-risk prostate cancer. Maximum PI-RADS score: 2. 2. Moderate BPH, estimated gland volume 52.65 (PSA density=0.14 ng/mL/mL) 3. No suspicious osseous lesion. No lymphadenopathy. No evidence of prostate adenocarcinoma involving the periprostatic tissues. 4. Indeterminate left iliac bone lesion measuring 28 mm. Given lack of other signs of metastatic pros evans disease this finding is likely represent another etiology. [facility], , 04/09/2025 1:51 PM
== END | disposition home or self-care (01) ==
LOC: RADMRIMAIN 06:28
PROVIDERS: ATTEND Urology
DX: N40.0 Benign prostatic hyperplasia without lower urinary tract symptoms (principal); R97.20 Elevated prostate specific antigen [PSA]
CPT/HCPCS: 72197; A9585